=== PATIENT | female | born 1965 | race Caucasian/White ===

== ENCOUNTER → 2016-04-25 | Day surgery (SDC) | payer BC ==
[~2016-04-25] MED LIST: FENTANYL PF 100 MCG/2 ML VIAL. IV PRN; HYDROMORPHONE 2 MG/ML VIAL. IV PRN; IV RINGERS,LACTATED 1000ML 1,000 ML IV SCH; LIDOCAINE 1% 1 ML SYRINGE. ID PRN; LIDOCAINE 2% PF Vial for OR 5 ML VIAL. ONE; MORPHINE SULFATE 2 MG/ML DISP.SYRIN. IV PRN; ONDANSETRON PF 4 MG/2 ML VIAL. IV PRN; PROCHLORPERAZINE 10 MG/2 ML VIAL. IV PRN; PROPOFOL 20 ML IV ONE; RANI150T6 PO; SUCR1TAB29 PO
[2016-04-25 16:44] VITALS: BP 139/71
--- NOTE | 2016-04-26 06:03 | HP ---
ADMIT DATE: 04/25/2016 REASON FOR CONSULTATION: Recurrent epigastric abdominal pain, status post cholecystectomy. HISTORY OF PRESENT ILLNESS: A 50-year-old female, whose past medical history is significant for cholecystectomy, gastroesophageal reflux disease, status post appendectomy, hysterectomy, who is seen with recurrent epigastric abdominal pain leading to the Emergency Room visit. CT scan and labs of the abdomen and pelvis were unrevealing for retained stone, mass, or obstruction. The episode lasted for approximately 3 hours; did resolve with the administration of morphine, fluids, antiemetics. The patient is here today for upper endoscopy to further assess her symptoms. Denies any dysphagia or odynophagia. PAST MEDICAL HISTORY: Status post cholecystectomy, hysterectomy, hypothyroidism, reflux. ALLERGIES: AMOXICILLIN, CLAVULANIC ACID. MEDICATIONS: Per the [facility]. REVIEW OF SYSTEMS: Per records. PHYSICAL EXAMINATION: GENERAL: Reveals a well-nourished, well-developed, female, who is alert, conversant, in no acute distress. She is afebrile. HEENT: Normocephalic and atraumatic head. Pupils and extraocular muscles were not tested. Sclerae anicteric. NECK: Supple. LUNGS: Clear. CARDIOVASCULAR: Reveals S1 and S2, without S3, S4 or appreciable murmur. ABDOMEN: Reveals a soft abdomen, normal bowel sounds, without appreciable hepatosplenomegaly. Epigastric tenderness to deep palpation. EXTREMITIES: Reveals no cyanosis, clubbing, edema. IMPRESSION AND PLAN: Abdominal pain, status post cholecystectomy. Differential includes gastric volvulus, gastroparesis, penetrating peptic ulcer disease, retained common bile duct stone. We therefore recommend EGD to further assess her symptoms. If this is unrevealing, MRCP and small bowel series may be pursued. I would like to thank Radha Lal for allowing us to consult and participate in the patient's care. CHRIS DU MD DR: NIYAH/dino JOB#: [id number] / [id number] RADHA Real
== END | disposition home or self-care (01) ==
LOC: ENDOS 15:03
PROVIDERS: ATTEND Internal Medicine Gastroenterology
DX: K29.50 Unspecified chronic gastritis without bleeding (principal); K21.9 Gastro-esophageal reflux disease without esophagitis; E03.9 Hypothyroidism, unspecified; Z90.49 Acquired absence of other specified parts of digestive tract; Z90.710 Acquired absence of both cervix and uterus; Z72.89 Other problems related to lifestyle
CPT/HCPCS: 43235; J2704

== ENCOUNTER → 2016-05-09 | Outpatient (CLI) | payer BC ==
[2016-04-25 16:44] VITALS: BP 139/71
[~2016-05-09] MED LIST changes: -FENTANYL PF 100 MCG/2 ML VIAL. IV PRN; -HYDROMORPHONE 2 MG/ML VIAL. IV PRN; -IV RINGERS,LACTATED 1000ML 1,000 ML IV SCH; -LIDOCAINE 1% 1 ML SYRINGE. ID PRN; -LIDOCAINE 2% PF Vial for OR 5 ML VIAL. ONE; -MORPHINE SULFATE 2 MG/ML DISP.SYRIN. IV PRN; -ONDANSETRON PF 4 MG/2 ML VIAL. IV PRN; -PROCHLORPERAZINE 10 MG/2 ML VIAL. IV PRN; -PROPOFOL 20 ML IV ONE
--- NOTE | 2016-05-09 11:00 | RAD ---
MRCP, 05/09/2016: History: Epigastric pain Imaging was performed in axial and coronal planes utilizing a variety of imaging sequences including T2 weighted, fat suppressed T2 weighted and opposed phase gradient echo sequences. Heavily T2 weighted MRCP sequences were also performed with and without respiratory gating with 3-D MIP images reconstructed. The gallbladder is surgically absent. The intrahepatic and extrahepatic bile ducts are of normal caliber. No filling defect is seen in the common duct to suggest a retained calculus. The pancreatic duct is small and shows no abnormality. On the opposed phase gradient echo sequence there is signal dropout in the liver in a heterogeneous pattern compatible with patchy fatty infiltration. The liver measures 20.8 cm in craniocaudad extent. These limited views of the liver, spleen, pancreas and both kidneys are otherwise unremarkable. IMPRESSION: 1. Status post cholecystectomy. 2. No biliary tract abnormality is detected. 3. Hepatomegaly with patchy fatty infiltration.
== END | disposition home or self-care (01) ==
LOC: MRI 07:36
PROVIDERS: ATTEND Internal Medicine Gastroenterology
DX: R10.13 Epigastric pain (principal); R16.0 Hepatomegaly, not elsewhere classified; K76.0 Fatty (change of) liver, not elsewhere classified
CPT/HCPCS: 74181

== ENCOUNTER → 2016-05-15 | Outpatient (CLI) | payer BC ==
[2016-04-25 16:44] VITALS: BP 139/71
--- NOTE | 2016-05-15 10:22 | RAD ---
EXAM: Nuclear gastric emptying scan. HISTORY: Epigastric pain. TECHNIQUE: Scintigraphic images of the abdomen were obtained following the oral administration of 2.0 mCi technetium 99m sulfur colloid in based meal. COMPARISON: None. FINDINGS: There is accumulation of greater tracer within the stomach and entering of tracer into the small bowel. The estimated gastric imaging half-time is within normal limits 61 minutes. IMPRESSION: Unremarkable nuclear gastric emptying scan.
== END | disposition home or self-care (01) ==
LOC: NM 07:16
PROVIDERS: ATTEND Internal Medicine Gastroenterology
DX: R10.13 Epigastric pain (principal); R11.0 Nausea
CPT/HCPCS: 78264; A9541